=== PATIENT | female | born 1960 | race Caucasian/White ===

== ENCOUNTER 2022-03-22 13:54 | Emergency (ER) | payer OTHER ==
[~2022-03-22] VITALS: Ht 172.7 cm; Wt 117.9 kg
--- NOTE | 2022-03-22 14:10 | NUR ---
CALLED [facility] AND SPOKE WITH SERGEI FULLER FOR CLARIFICATION REGARDING SENDING PT HERE. SHE STATED DR LOO PLACED AN ORDER TO HAVE PT SENT HERE FOR PSYCH EVAL. PER JONNY, PT HAS BEEN REFUSING TO EAT AND REFUSING ALL CARE. THEY STATED PT BECAME AGGRESSIVE WHILE CHANGING TO CHANGE HER THIS MORNING. THEY ALSO STATED THAT SHE HAS BEEN TALKING TO HERSELF. THEY DENIED KNOWLEDGE OF SI/HI. DR LAIRD MADE AWARE.
--- NOTE | 2022-03-22 14:12 | NUR ---
DR LAIRD AT BEDSIDE EVALUATING PT
--- NOTE | 2022-03-22 14:15 | NUR ---
KRISTOPHER FROM [facility] [place] FOR A PSYCH EVALUATION. ACCORDING TO FACILITY THE PT WAS HAVING VISUAL AND AUDITORY HALLUCINATION, WAS REFUSING TO TAKE MEDICATION, REFUSING TO EAT, REFUSING TO ALLOW STAFF TO CHANGE HER AND BECAME COMBATIVE WHEN THEY ATTEPTED. PT DENIES SI/HI. HX:PARKINSON, DRY EYE, MUSCLE WEAKNESS, AUDITORY HALLUCINATIONS, OVERACTIVE BLADDER, CEREBRAL PALSY, HYPOTHYROIDISM, HYPERLIPIDEMIA, PARANOID SCHIZOPHRENIA, BIPOLAR, MAJOR DEPRESSIVE DISORDER, ANXIETY. GARY
[2022-03-22 14:19] VITALS: BP 140/70
[2022-03-22 14:45] LABS: BASOPHILS % (AUTO) 0.4 % (0.0-2.0); EOSINOPHILS # (AUTO) 0.1 K/uL (0-0.4); EOSINOPHILS % (AUTO) 0.8 % (0.0-4.0); HEMATOCRIT 46.8 % (36-48); HEMOGLOBIN 15.4 g/dL (12.0-16.0); LYMPHOCYTES # (AUTO) 1.3 K/uL (2.5-16.5); LYMPHOCYTES % (AUTO) 12.7 % (20.5-51.1); MEAN CORPUSCULAR HEMOGLOBIN 28 pg (27-31); MEAN CORPUSCULAR HGB CONC 33 g/dL (33-37); MEAN CORPUSCULAR VOLUME 83.9 fL (80-94); MONOCYTES # (AUTO) 0.5 K/uL (0.8-1.0); NEUTROPHILS # (AUTO) 8.4 K/uL (1.8-7.7); NEUTROPHILS % (AUTO) 81.1 % (42.2-75.2); PLATELET COUNT (AUTO) 278 K/uL (140-450); RED BLOOD CELL COUNT(AUTO) 5.58 MIL/uL (4.20-5.40); RED CELL DISTRIBUTION WIDTH 14.3 % (11.6-13.7); WHITE BLOOD COUNT (AUTO) 10.3 K/uL (4.8-10.8)
[2022-03-22 15:13] LABS: ALBUMIN 3.6 g/dL (3.4-5.0); ANION GAP 15.7 (8-16); CARBON DIOXIDE 23.9 mmol/L (21-32); CREATININE 0.7 mg/dL (0.6-1.3); POTASSIUM 3.6 mmol/L (3.5-5.1); TOTAL BILIRUBIN 0.6 mg/dL (0.0-1.0)
--- NOTE | 2022-03-22 15:17 | NUR ---
OFFERED PT FOOD AND WATER. PT REFUSING, STATING "I DONT WANT IT". PT REFUSING TO GIVE A REASON, JUST STATING SHE DOESNT WANT ANY. DR LAIRD MADE AWARE
--- NOTE | 2022-03-22 15:40 | NUR ---
PT ASKING HOW LONG IT WOULD TAKE AND INFORMED HER THAT WE DO NOT KNOW FORSURE. OFFERED PT FOOD AND WATER. PT REFUSING, STATING "I DONT WANT IT".
--- NOTE | 2022-03-22 16:05 | NUR ---
PT PLACED ON BEDPAN TO SEE IF SHE CAN GO TO THE BATHROOM.
--- NOTE | 2022-03-22 16:25 | NUR ---
PT CALLED OUT AND SAID SHE WAS DONE SITTING IN THE BEDPAN BUT WAS UNABLE TO GO. NOTIFIED DR. LAIRD
[2022-03-22] MEDS ORDERED: NACL 0.9% 1,000 ML IV ONE (17:00)
--- NOTE | 2022-03-22 17:02 | NUR ---
STRAIGHT CATH THE PT; UNSUCCESFUL/NO URINE OUTPUT.
--- NOTE | 2022-03-22 19:13 | NUR ---
Pt report given to SERGEI BAKER. Transfer of care at this time.
--- NOTE | 2022-03-22 19:17 | NUR ---
PT IS TALKING TO HERSELF.
--- NOTE | 2022-03-22 21:45 | NUR ---
TRIED TO STRAIGHT CATH PT BUT NO URINE OUTPUT. THERE WAS URINE INSIDE DIAPER BUT PT REFUSING TO LET US KNOW SHE HAS TO URINATE.
--- NOTE | 2022-03-22 22:19 | NUR ---
PUT ON SUCTION CATH FOR PT URINE COLLECTION. SCOTTY WICK IN PLACE WITH SUCTION ON
--- NOTE | 2022-03-23 01:01 | NUR ---
pt pt on bedpan to get urine
[2022-03-23 02:53] LABS: APPEARANCE,URINE CLEAR (CLEAR); BILIRUBIN,URINE 2+ (NEGATIVE); BLOOD, URINE NEGATIVE (NEGATIVE); COLOR,URINE YELLOW (YELLOW); LEUKOCYTE ESTERASE ,URINE 1+ (NEGATIVE); NITRITE, URINE NEGATIVE (NEGATIVE); UGLUCOSE NEGATIVE (NEGATIVE)
--- NOTE | 2022-03-23 03:00 | NUR ---
obtained urine sample and sent to lab
[2022-03-23 03:09] LABS: RBC,URINE 0-5 /HPF (0-5)
[2022-03-23 03:10] LABS: WBC,URINE 60-80 /HPF (0-5)
--- NOTE | 2022-03-23 03:53 | NUR ---
Patient appears to be resting with eyes comfortably in bed. Vital Signs within normal limits. Respirations even and unlabored.
--- NOTE | 2022-03-23 07:15 | NUR ---
REPORT RECEIVED FROM CESAR MAI. ASSUMED CARE AT THIS TIME
--- NOTE | 2022-03-23 07:32 | NUR ---
PT AT REST AND SLEEPING SUPINE POSITION . NO VISIBLE DISTRESS. RESPIRATIONS EVEN AND UNLABORED. BED AT LOWEST POSITION, BED RAILS UP X2.
--- NOTE | 2022-03-23 08:42 | NUR ---
ATTEMPTED TO TAKE PT VITALS . PT REFUSED " DONT WASTE YOUR TIME W/ THAT, THEY NEVER WORK" . OFFERED PT BLANKET, WATER OR FOOD , PT ALSO REFUSED "NOT HUNGRY".
--- NOTE | 2022-03-23 09:11 | NUR ---
PT OFFERED BREAKFAST. PT REFUSED
--- NOTE | 2022-03-23 09:13 | NUR ---
LAB AT BEDSIDE
--- NOTE | 2022-03-23 09:14 | NUR ---
PT REFUSED BLOOD DRAW
[2022-03-23] MEDS ORDERED: CEPH-588 PO (09:23)
[2022-03-23] MEDS ORDERED: cephALEXin 500 MG CAP PO ONE (09:25)
--- NOTE | 2022-03-23 09:37 | NUR ---
PT REOFFERED BREAKFAST. PT AWAKE, SITTING UP AND EATING IN BED
--- NOTE | 2022-03-23 10:04 | NUR ---
pt sister MARIAM updated on pt status and made aware of d/c. sister requested to speak w/ pt, pt refused
--- NOTE | 2022-03-23 12:55 | NUR ---
PT PROVIDED WITH LUNCH. PT AWAKE AND EATING IN BED
--- NOTE | 2022-03-23 15:00 | NUR ---
pt offered to be repositioned, pt refused. pt at rest and laying supine position. no visible distress. respirations even and unlabored. hob positioned per pt comfort. bed at lowest position, bed rails up x2.
--- NOTE | 2022-03-23 16:50 | NUR ---
Patient discharged with v/s stable. Written and verbal after care instructions given and explained. Patient verbalized understanding. [facility] Transport ([facility] All questions addressed prior to discharge. Advised to follow up with PMD.
--- NOTE | 2022-03-23 18:28 | NUR ---
PT PROVIDED W/ DINNER. PT AWAKE AND EATING IN BED
--- NOTE | 2022-03-23 18:49 | NUR ---
PT FACILITY CALLED AND MADE AWARE OF PT D/C.
[2022-03-23 18:50] VITALS: BP 120/82
--- NOTE | 2022-03-23 18:50 | NUR ---
Patient discharged with v/s stable. Written and verbal after care instructions given and explained. Patient verbalized understanding. Ambulance Transport with [facility] to care home. All questions addressed prior to discharge. Advised to follow up with PMD.
--- NOTE | 2022-03-25 16:14 | NUR ---
LATE ENTRY. RECEIVED POSITIVE URINE CULTURE. DISCREPANCY LOG SIGNED BY DR HARRIS, TREATMENT APPROPRIATE. FORM PLACED IN BINDER.
== END 2022-03-22 18:50 ==
LOC: MED 13:54
DX: R62.7 Adult failure to thrive (principal); R63.0 Anorexia; Z68.1 Body mass index [BMI] 19.9 or less, adult
CPT/HCPCS: 36415; 71045; 80053; 81001; 85025; 87086; 93005; 96360; 99285; C1758; J7030

== ENCOUNTER 2022-07-28 13:22 | Emergency (ER) | payer OTHER, MEDICAID ==
[~2022-07-28] VITALS: Ht 162.6 cm; Wt 108.9 kg
[~2022-07-28 13:22] MED LIST: CEPH-588 PO
--- NOTE | 2022-07-28 13:37 | NUR ---
RECEIVED CALL FROM [facility] [place]. LAST KNOWN WELL [address] GRAMAJO AWARE. CODE BRAIN CALLED BY DR GRAMAJO.
--- NOTE | 2022-07-28 13:41 | NUR ---
PT TAKEN TO CT VIA [facility] WITH [address] [employer] DRIVER AND PRIMARY NURSE
[2022-07-28 14:19] LABS: BASOPHILS # (AUTO) 0.1 K/uL (0.00-0.22); BASOPHILS % (AUTO) 0.9 % (0.0-2.0); EOSINOPHILS % (AUTO) 0.5 % (0.0-4.0); HEMATOCRIT 52.5 % (36-48); HEMOGLOBIN 17.2 g/dL (12.0-16.0); LYMPHOCYTES % (AUTO) 19.8 % (20.5-51.1); MEAN CORPUSCULAR HEMOGLOBIN 28 pg (27-31); MEAN CORPUSCULAR HGB CONC 33 g/dL (33-37); MEAN CORPUSCULAR VOLUME 84.6 fL (80-94); MONOCYTES # (AUTO) 0.6 K/uL (0.8-1.0); MONOCYTES % (AUTO) 5.6 % (1.7-9.3); NEUTROPHILS # (AUTO) 7.3 K/uL (1.8-7.7); NEUTROPHILS % (AUTO) 73.2 % (42.2-75.2); PLATELET COUNT (AUTO) 279 K/uL (140-450); RED CELL DISTRIBUTION WIDTH 14.6 % (11.6-13.7); WHITE BLOOD COUNT (AUTO) 9.9 K/uL (4.8-10.8)
[2022-07-28 14:30] LABS: ALBUMIN 3.6 g/dL (3.4-5.0); ANION GAP 19.9 (8-16); CARBON DIOXIDE 27.9 mmol/L (21-32); CREATININE 0.8 mg/dL (0.6-1.3); POTASSIUM 3.8 mmol/L (3.5-5.1); TOTAL BILIRUBIN 0.7 mg/dL (0.0-1.0)
--- NOTE | 2022-07-28 14:35 | NUR ---
Attempted straight cath wiyhout success.
[2022-07-28 14:36] VITALS: BP 132/81
[2022-07-28] MEDS ORDERED: NACL 0.9% 1,000 ML IV ONE (15:35)
--- NOTE | 2022-07-28 19:12 | NUR ---
ATTEMPTED TO COVID SWAB PT AND PT NIECY SPOKE. PT STATED SHE DIDN'T WANT TO BE SWABBED AND WANTED TO GO HOME. ASKED PT WHY SHE DIDN'T SPEAK EARLIER AND SHE STATED SHE JUST DIDN'T WANT TO. ER MD MADE AWARE. ADMITTING MD MADE AWARE. PT TO BE DISCHARGED HOME.
--- NOTE | 2022-07-28 21:23 | NUR ---
PATIENT REFUSED COVID AND FLU SWABS. STATED THAT SHE DID NOT WANT ANY TX DONE ON HER.
--- NOTE | 2022-07-28 23:42 | NUR ---
Patient moved to bed 14.
--- NOTE | 2022-07-29 01:20 | NUR ---
Patient appears to be resting comfortably in bed. Vital Signs within normal limits. Respirations even and unlabored.
--- NOTE | 2022-07-29 03:14 | NUR ---
Patient appears to be resting comfortably in bed. Vital Signs within normal limits. Respirations even and unlabored.
--- NOTE | 2022-07-29 05:42 | NUR ---
Patient appears to be resting comfortably in bed. Vital Signs within normal limits. Respirations even and unlabored.
--- NOTE | 2022-07-29 07:15 | NUR ---
RECEIVED REPORTED FROM JOSIE BRYANT.
--- NOTE | 2022-07-29 09:40 | NUR ---
Patient discharged with v/s stable. Written and verbal after care instructions given and explained. Patient alert, oriented and verbalized understanding of instructions. Ambulance Transport with to long term. All questions addressed prior to discharge. ID band removed. Patient advised to follow up with PMD.NO Rx given. Patient educated on indication of medication including possible reaction and side effects. Opportunity to ask questions provided and answered.
[2022-07-29 10:31] VITALS: BP 111/68
== END 2022-07-29 09:40 | disposition home or self-care (01) ==
LOC: MED 13:22
DX: F20.9 Schizophrenia, unspecified (principal); E87.0 Hyperosmolality and hypernatremia; F94.0 Selective mutism; E03.9 Hypothyroidism, unspecified
CPT/HCPCS: 70450; 71045; 80053; 82140; 83880; 84484; 85025; 85610; 85730; 93005; 96360; 96361; 99285; J7030; Q0092

== ENCOUNTER 2023-06-24 17:56 | Inpatient (IN) | payer OTHER ==
[~2023-06-24] VITALS: Ht 167.6 cm; Wt 112.5 kg
[2023-06-24 17:59] VITALS: BP 142/78; PULSE 88; RESP 20; TEMP 98.1; O2SAT 98
[2023-06-24] MEDS ORDERED: OLANZapine 10 MG VIAL IM ONE (18:40)
[2023-06-24 19:30] LABS: BASOPHILS # (AUTO) 0.1 K/uL (0.00-0.22); BASOPHILS % (AUTO) 1.4 % (0.0-2.0); EOSINOPHILS # (AUTO) 0.1 K/uL (0-0.4); EOSINOPHILS % (AUTO) 2.1 % (0.0-4.0); HEMATOCRIT 48.9 % (36-48); HEMOGLOBIN 16.3 g/dL (12.0-16.0); LYMPHOCYTES # (AUTO) 2.1 K/uL (2.5-16.5); MEAN CORPUSCULAR HEMOGLOBIN 29 pg (27-31); MEAN CORPUSCULAR HGB CONC 33 g/dL (33-37); MEAN CORPUSCULAR VOLUME 87.7 fL (80-94); MONOCYTES # (AUTO) 0.4 K/uL (0.8-1.0); MONOCYTES % (AUTO) 5.9 % (1.7-9.3); NEUTROPHILS # (AUTO) 3.9 K/uL (1.8-7.7); NEUTROPHILS % (AUTO) 58.6 % (42.2-75.2); PLATELET COUNT (AUTO) 279 K/uL (140-450); RED BLOOD CELL COUNT(AUTO) 5.58 MIL/uL (4.20-5.40); RED CELL DISTRIBUTION WIDTH 14.5 % (11.6-13.7); WHITE BLOOD COUNT (AUTO) 6.6 K/uL (4.8-10.8)
[2023-06-24 19:46] LABS: ACETAMINOPHEN < 0.5 ug/ml (10-30); ALANINE AMINOTRANSFERASE 50 U/L (12-78); ALBUMIN 4.2 g/dL (3.4-5.0); ALCOHOL, BLOOD < 3 mg/dL (<10); ALKALINE PHOSPHATASE 114 U/L (50-136); ANION GAP 11.9 (8-16); ASPARTATE AMINOTRANSFERASE 38 U/L (15-37); CALCIUM 9.6 mg/dL (8.5-10.1); CARBON DIOXIDE 29.6 mmol/L (21-32); CHLORIDE 101 mmol/L (98-107); CREATININE 0.8 mg/dL (0.6-1.3); GFR ARICAN-AMERICAN 94 mL/min (>90); GFR NON ARICAN-AMERICAN 78 mL/min (>90); GLUCOSE 92 mg/dL (74-106); POTASSIUM 3.5 mmol/L (3.5-5.1); SALICYLATE < 2.8 mg/dL (2.8-20.0); SODIUM SERUM 139 mmol/L (136-145); TOTAL PROTEIN, SERUM 8.6 g/dL (6.4-8.2); UREA NITROGEN, BLOOD 13 mg/dL (7-18)
[2023-06-24 21:00] LABS: APPEARANCE,URINE CLEAR (CLEAR); BILIRUBIN,URINE NEGATIVE (NEGATIVE); BLOOD, URINE TRACE-L (NEGATIVE); COLOR,URINE YELLOW (YELLOW); LEUKOCYTE ESTERASE ,URINE NEGATIVE (NEGATIVE); NITRITE, URINE NEGATIVE (NEGATIVE); PROTEIN,URINE NEGATIVE (NEGATIVE); UGLUCOSE NEGATIVE (NEGATIVE)
[2023-06-24 21:08] LABS: BACTERIA,URINE FEW /HPF (None Seen); RBC,URINE 0-5 /HPF (0-5); SQUAMOUS EPITHELIAL CELL,UR 0-3 (FEW) /LPF (0-3 (FEW)); WBC,URINE 0-5 /HPF (0-5)
[2023-06-25 10:05] LABS: AMPHETAMINE, URINE NEGATIVE ng/ml (NEG <=1000); BARBITURATE, URINE NEGATIVE ng/ml (NEG <=200); BENZODIAZEPINE, URINE NEGATIVE ng/mL (NEG <=200); CANNABINOID, URINE NEGATIVE ng/mL (NEG <=50); COCAINE, URINE NEGATIVE ng/mL (NEG <=300); OPIATE, URINE NEGATIVE ng/mL (NEG <=2000); PHENCYCLIDINE SCREEN,URINE NEGATIVE ng/mL (NEG <=25)
[2023-06-25] MEDS: OLANZapine 5 MG ODT PO SCH ×2 (10:28→21:13)
[2023-06-25 15:21] LABS: FREE T4 (FREE THYROXINE) 0.18 ng/dL (0.76-1.46); THYROID STIMULATING HORMONE 127.29 uIU/mL (0.34-3.74)
[2023-06-25 19:40] VITALS: O2SAT 97
[2023-06-25 22:24] VITALS: O2SAT 97
[2023-06-26] VITALS (10 sets, daily range): O2SAT 97–98
[2023-06-26] MEDS: OLANZapine 5 MG ODT PO SCH ×2 (09:02→21:17)
[2023-06-27 00:10] VITALS: O2SAT 98
[2023-06-27 02:34] VITALS: O2SAT 98
[2023-06-27 05:05] VITALS: O2SAT 98
[2023-06-27] MEDS: OLANZapine 5 MG ODT PO SCH ×2 (09:08→21:00)
[2023-06-27] MEDS ORDERED: ACET-2619 PO (23:57)
[2023-06-27] MEDS ORDERED: ALUM355S50 PO (23:57)
[2023-06-28 01:00] VITALS: BP 122/76; PULSE 78; RESP 20; TEMP 98; O2SAT 96
[2023-06-28] MEDS ORDERED: LEVOTHYROXINE 0.05 MG TAB PO SCH (06:30)
[2023-06-28 08:00] VITALS: BP 148/76; PULSE 78; RESP 20; TEMP 98; O2SAT 96
[2023-06-28] MEDS: LEVOTHYROXINE 0.1 MG TAB PO SCH ×2 (08:30→15:12)
[2023-06-28] MEDS ORDERED: ACETAMINOPHEN 325 MG TAB PO PRN (08:35)
[2023-06-28] MEDS: OLANZapine 5 MG ODT PO SCH ×2 (08:53→20:04)
[2023-06-28 16:00] VITALS: BP 111/78; PULSE 73; RESP 18; TEMP 97.4; O2SAT 96
[2023-06-28 20:00] VITALS: BP 120/75; PULSE 79; RESP 19; TEMP 97.4; O2SAT 100
[2023-06-29 05:26] VITALS: BP 129/94; PULSE 80; RESP 18; TEMP 97.6; O2SAT 97
[2023-06-29] MEDS: LEVOTHYROXINE 0.1 MG TAB PO SCH (05:30)
[2023-06-29 07:02] LABS: ANION GAP 12.1 (8-16); BASOPHILS # (AUTO) 0.1 K/uL (0.00-0.22); BASOPHILS % (AUTO) 1.3 % (0.0-2.0); CALCIUM 9.3 mg/dL (8.5-10.1); CARBON DIOXIDE 28.3 mmol/L (21-32); CREATININE 0.9 mg/dL (0.6-1.3); EOSINOPHILS # (AUTO) 0.2 K/uL (0-0.4); EOSINOPHILS % (AUTO) 2.8 % (0.0-4.0); HEMATOCRIT 43.4 % (36-48); HEMOGLOBIN 14.4 g/dL (12.0-16.0); LYMPHOCYTES # (AUTO) 3.2 K/uL (2.5-16.5); MEAN CORPUSCULAR HEMOGLOBIN 29 pg (27-31); MEAN CORPUSCULAR HGB CONC 33 g/dL (33-37); MEAN CORPUSCULAR VOLUME 86.7 fL (80-94); MONOCYTES # (AUTO) 0.7 K/uL (0.8-1.0); MONOCYTES % (AUTO) 8.2 % (1.7-9.3); NEUTROPHILS % (AUTO) 48.7 % (42.2-75.2); PLATELET COUNT (AUTO) 271 K/uL (140-450); POTASSIUM 3.4 mmol/L (3.5-5.1); RED BLOOD CELL COUNT(AUTO) 5.01 MIL/uL (4.20-5.40); RED CELL DISTRIBUTION WIDTH 14.6 % (11.6-13.7); WHITE BLOOD COUNT (AUTO) 8.3 K/uL (4.8-10.8)
[2023-06-29 08:00] VITALS: PULSE 92; RESP 18; O2SAT 95
[2023-06-29] MEDS ORDERED: POTASSIUM CHLORIDE 10 MEQ TABER PO SCH (08:30)
[2023-06-29] MEDS: OLANZapine 5 MG ODT PO SCH ×2 (08:54→20:51)
[2023-06-29] MEDS: ENOXAPARIN 40 MG/0.4 ML SYR SUBQ SCH (09:00)
[2023-06-29 20:00] VITALS: PULSE 90; RESP 16
[2023-06-30] MEDS: LEVOTHYROXINE 0.1 MG TAB PO SCH (06:02)
[2023-06-30 08:00] VITALS: BP 104/76; PULSE 76; PULSE 78; RESP 18; TEMP 97.2; O2SAT 94; O2SAT 96
[2023-06-30] MEDS: OLANZapine 5 MG ODT PO SCH ×2 (10:01→20:28)
[2023-06-30] MEDS: ENOXAPARIN 40 MG/0.4 ML SYR SUBQ SCH (10:06)
[2023-06-30 20:00] VITALS: BP 110/72; PULSE 86; RESP 18; TEMP 98.4; O2SAT 93
[2023-07-01 00:38] VITALS: PULSE 86; RESP 18; O2SAT 95
[2023-07-01 04:00] VITALS: BP 116/75; PULSE 78; RESP 18; TEMP 98.2; O2SAT 93
[2023-07-01] MEDS: LEVOTHYROXINE 0.1 MG TAB PO SCH (06:17)
[2023-07-01 08:00] VITALS: PULSE 76; RESP 17; O2SAT 96
[2023-07-01] MEDS: OLANZapine 5 MG ODT PO SCH (08:20)
[2023-07-01] MEDS: ENOXAPARIN 40 MG/0.4 ML SYR SUBQ SCH (08:25)
[2023-07-01 09:46] VITALS: BP 119/71; PULSE 76; RESP 17; TEMP 97.6
[2023-07-01 12:48] VITALS: BP 119/71; PULSE 76; RESP 17; TEMP 97.6; O2SAT 96
== END 2023-07-01 14:45 | DRG 644 ==
LOC: MED 17:56 → MMU 06-26 20:12 → MTU 06-28 00:18
PROVIDERS: ADMIT Family Medicine; ATTEND Family Medicine
DX: E06.3 Autoimmune thyroiditis (principal); R45.851 Suicidal ideations; E03.9 Hypothyroidism, unspecified; F20.9 Schizophrenia, unspecified; G80.9 Cerebral palsy, unspecified; Z20.822 Contact with and (suspected) exposure to COVID-19; Z79.2 Long term (current) use of antibiotics; Z56.0 Unemployment, unspecified
CPT/HCPCS: 36415; 70450; 76536; 80048; 80053; 80305; 81001; 84439; 84443; 85025; 87081; 87635-QW; 93005; 96372; 99285; C9803-CS; G0480; G0482; J1650; J3490; Q0092